=== PATIENT | male | born 1985 | race Caucasian/White ===

== ENCOUNTER 2019-08-10 14:47 | Emergency (ER) | payer OTHER ==
[2019-08-10] MEDS ORDERED: ACETAMINOPHEN 500 MG TAB ONE (15:13)
[2019-08-10] MEDS ORDERED: HYDROCODONE/CHLORPHEN 5 ML/OSYR ONE (15:14)
--- NOTE | 2019-08-10 16:02 | ER ---
Nurse's Notes [facility] Name: Nick Quiroz Age: 34 yrs Sex: Male : 1985 Arrival Date: 08/10/2019 Time: 14:52 Bed 19 Private MD: Diagnosis: Influenza due to identified novel influenza A virus;Streptococcal tonsillitis;Fever, unspecified Presentation: 08/09 14:52 Chief complaint: Patient states: Started with a cough on and a fever of 104 rb1 today. c/o bodyaches x 1 day, chest pressure x 1 day 08/29. Denies SOB, nausea, vomiting, and diarrhea. 14:52 Method Of Arrival: Wheelchair rb1 14:52 Coronavirus screen: Patient reports a subjective fever or greater than 100.4F, or rb1 cough, or shortness of breath, or difficulty breathing. Surgical mask placed on patient. Patient moved to private room, placed in contact and droplet isolation with eye protection until further assessment. Patient denies travel on a cruise ship or to a country the [facility] currently lists as an affected area. Pt. was tested this morning for the virus, will receive results in four days. Ebola Screen: Patient negative for fever greater than or equal to 101.5 degrees Fahrenheit, and additional compatible Ebola Virus Disease symptoms. Initial Sepsis Screen: Does the patient meet any 2 criteria? Yes Does the patient have a suspected source of infection? Yes: Productive cough/pneumonia. Risk Assessment: Do you want to hurt yourself or someone else? Patient reports no desire to harm self or others. 14:52 Acuity: SILVIA 3 rb1 14:52 Onset of symptoms was August 08, 2019. rb1 Triage Assessment: 14:52 General: Appears in no apparent distress. comfortable, Behavior is calm, cooperative, rb1 Reports fever for Bodyaches started yesterday, Fever started this morning. feeling ill for. Pain: Complains of pain in anterior aspect of left upper chest Pain currently is 4 out of 10 on a pain scale. Quality of pain is described as pressure. Neuro: Level of Consciousness is awake, alert, obeys commands, Oriented to person, place, time, situation. Cardiovascular: Capillary refill < 3 seconds is brisk in bilateral fingers. Respiratory: Reports cough that is since Denies shortness of breath. GI: No signs and/or symptoms were reported involving the gastrointestinal system. : No signs and/or symptoms were reported regarding the genitourinary system. Derm: Skin is pink, warm \T\ dry. Historical: - Allergies: 14:52 No Known Allergies; rb1 - Home Meds: 14:52 None [Active]; rb1 - PMHx: 14:52 None; rb1 - PSHx: 14:52 Lasik; rb1 - Immunization history:: Flu vaccine is not up to date. - Social history:: Smoking status: Patient reports the use of cigarette tobacco products, denies chronic smoking, but will smoke occasionally, cigars. Screenin:52 Abuse screen: Denies threats or abuse. Nutritional screening: No deficits noted. rb1 Tuberculosis screening: No symptoms or risk factors identified. Fall Risk None identified. Assessment: 14:52 General: See triage assessment. rb1 15:52 Reassessment: Patient appears in no apparent distress at this time. No changes from rb1 previously documented assessment. 16:17 Reassessment: discharge pending due to shot time. rb1 16:40 Reassessment: No signs and symptoms of adverse reactions. Patient states feeling better.rb1 Vital Signs: 14:52 BP 131 / 83; Pulse 104; Resp 17; Temp 101(TE); Pulse Ox 96% on R/A; Weight 86.18 kg rb1 (R); Height 5 ft. 11 in. (180.34 cm) (R); Pain 4/10; 15:50 BP 125 / 74; Pulse 99; Resp 17; Pulse Ox 99% ; rb1 16:24 BP 118 / 73; Pulse 90; Resp 18; Temp 100.2(TE); rb1 14:52 Body Mass Index 26.50 (86.18 kg, 180.34 cm) [facility] ED Course: 14:52 Patient arrived in ED. rb1 14:52 Arm band placed on right wrist. rb1 14:52 Patient has correct armband on for positive identification. Bed in low position. Call rb1 light in reach. Side rails up X 1. manager neonatal on. Pulse ox on. NIBP on. 14:55 Brittani Schumacher FNP-C is [facility]. snw 14:55 Guillermo Goldberg MD is Attending Physician. snw 15:07 Katja Crouch, GAL is Primary Nurse. rb1 15:27 Triage completed. rb1 15:55 Chest Single View XRAY In Process Unspecified. EDMS 16:45 No provider procedures requiring assistance completed. Patient did not have IV access rb1 during this emergency room visit. Administered Medications: 15:15 Drug: Tussionex Pennkinetic ER 5 ml Route: PO; rb1 16:15 Follow up: Response: No adverse reaction; Marked relief of symptoms rb1 15:15 Drug: Tylenol 1000 mg Route: PO; rb1 16:15 Follow up: Response: No adverse reaction; Temperature is decreased rb1 16:17 Drug: Bicillin L-A 1.2 million units Route: IM; Site: right gluteus; rb1 16:40 Follow up: Response: No adverse reaction rb1 Outcome: 16:00 Discharge ordered by . snw 16:45 Patient left the ED. rb1 16:45 Discharged to home ambulatory. rb1 16:45 Condition: stable 16:45 Discharge instructions given to patient, Instructed on discharge instructions, follow up and referral plans. medication usage, Demonstrated understanding of instructions, follow-up care, medications, Prescriptions given X 1. Signatures: Dispatcher [facility] EDMD Brittani Schumacher, [employer]SMANSHIP INSTRUCTOR-C [employer]SM[employer]SHIP INSTRUCTOR-Csnw Katja Crouch, RN RN rb1 Corrections: (The following items were deleted from the chart) 16:58 16:55 Patient left the ED. rb1 rb1
--- NOTE | 2019-08-10 16:02 | EDPHYS ---
Physician Documentation [facility] Name: Nick Quiroz Age: 34 yrs Sex: Male : 1985 Arrival Date: 08/10/2019 Time: 14:52 Bed 19 Private MD: ED Physician Guillermo Goldberg HPI: 08/09 15:18 This 34 yrs old Male presents to ER via Unassigned with complaints of fever. snw 15:18 The patient or guardian reports cough. Onset: The symptoms/episode began/occurred snw suddenly, 3 day(s) ago, and became worse today. Associated signs and symptoms: Pertinent positives: pressure to chest, higher fever. Severity of symptoms: At their worst the symptoms were moderate. It is unknown whether or not the patient has had similar symptoms in the past. The patient has not recently seen a physician. 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 Historical: - Allergies: 14:52 No Known Allergies; rb1 - Home Meds: 14:52 None [Active]; rb1 - PMHx: 14:52 None; rb1 - PSHx: 14:52 Lasik; rb1 - Immunization history:: Flu vaccine is not up to date. - Social history:: Smoking status: Patient reports the use of cigarette tobacco products, denies chronic smoking, but will smoke occasionally, cigars. ROS: 15:18 Eyes: Negative for injury, pain, redness, and discharge, ENT: Negative for injury, snw pain, and discharge, Neck: Negative for injury, pain, and swelling, Cardiovascular: Negative for chest pain, palpitations, and edema. 15:18 Abdomen/GI: Negative for abdominal pain, nausea, vomiting, diarrhea, and constipation, Back: Negative for injury and pain, : Negative for injury, bleeding, discharge, and swelling, MS/Extremity: Negative for injury and deformity, Skin: Negative for injury, rash, and discoloration, Neuro: Negative for headache, weakness, numbness, tingling, and seizure, Psych: Negative for depression, anxiety, suicide ideation, homicidal ideation, and hallucinations. 15:18 Constitutional: Positive for body aches, chills, fatigue, fever, malaise. 15:18 Respiratory: Positive for cough. Exam: 15:17 Head/Face: Normocephalic, atraumatic. Eyes: Pupils equal round and reactive to light, snw extra-ocular motions intact. Lids and lashes normal. Conjunctiva and sclera are non-icteric and not injected. Cornea within normal limits. Periorbital areas with no swelling, redness, or edema. ENT: Nares patent. No nasal discharge, no septal abnormalities noted. Tympanic membranes are normal and external auditory canals are clear. Oropharynx with no redness, swelling, or masses, exudates, or evidence of obstruction, uvula midline. Mucous membranes moist. Neck: Trachea midline, no thyromegaly or masses palpated, and no cervical lymphadenopathy. Supple, full range of motion without nuchal rigidity, or vertebral point tenderness. No Meningismus. Chest/axilla: Normal chest wall appearance and motion. Nontender with no deformity. No lesions are appreciated. 15:17 Abdomen/GI: Soft, non-tender, with normal bowel sounds. No distension or tympany. No guarding or rebound. No evidence of tenderness throughout. Back: No spinal tenderness. No costovertebral tenderness. Full range of motion. Skin: Warm, dry with normal turgor. Normal color with no rashes, no lesions, and no evidence of cellulitis. MS/ Extremity: Pulses equal, no cyanosis. Neurovascular intact. Full, normal range of motion. Neuro: Awake and alert, GCS 15, oriented to person, place, time, and situation. Cranial nerves II-XII grossly intact. Motor strength 5/5 in all extremities. Sensory grossly intact. Cerebellar exam normal. Normal gait. Psych: Awake, alert, with orientation to person, place and time. Behavior, mood, and affect are within normal limits. 15:17 Constitutional: The patient appears alert, febrile, listless, uncomfortable. 15:17 Cardiovascular: Rate: tachycardic, Rhythm: regular, Pulses: no pulse deficits are appreciated, Heart sounds: normal. 15:17 Respiratory: the patient does not display signs of respiratory distress, Respirations: normal, Breath sounds: are clear throughout. Vital Signs: 14:52 BP 131 / 83; Pulse 104; Resp 17; Temp 101(TE); Pulse Ox 96% on R/A; Weight 86.18 kg rb1 (R); Height 5 ft. 11 in. (180.34 cm) (R); Pain 4/10; 15:50 BP 125 / 74; Pulse 99; Resp 17; Pulse Ox 99% ; rb1 16:24 BP 118 / 73; Pulse 90; Resp 18; Temp 100.2(TE); rb1 14:52 Body Mass Index 26.50 (86.18 kg, 180.34 cm) rb1 MDM: 14:55 Patient medically screened. snw 16:02 Data reviewed: vital signs, nurses notes. Data interpreted: Pulse oximetry: on room air snw is 96 %. Interpretation: acceptable. Counseling: I had a detailed discussion with the patient and/or guardian regarding: the historical points, exam findings, and any diagnostic results supporting the discharge/admit diagnosis, lab results, the need for outpatient follow up, to return to the emergency department if symptoms worsen or persist or if there are any questions or concerns that arise at home. Special discussion: Based on the history and exam findings, there is no indication for further emergent testing or inpatient evaluation. I discussed with the patient/guardian the need to see the primary care provider for further evaluation of the symptoms. 08/09 15:06 Order name: Flu; Complete Time: 15:51 snw 08/09 15:06 Order name: Strep; Complete Time: 15:51 snw 08/09 15:06 Order name: Chest Single View XRAY; Complete Time: 16:40 snw Administered Medications: 15:15 Drug: Tussionex Pennkinetic ER 5 ml Route: PO; rb1 16:15 Follow up: Response: No adverse reaction; Marked relief of symptoms rb1 15:15 Drug: Tylenol 1000 mg Route: PO; rb1 16:15 Follow up: Response: No adverse reaction; Temperature is decreased rb1 16:17 Drug: Bicillin L-A 1.2 million units Route: IM; Site: right gluteus; rb1 16:40 Follow up: Response: No adverse reaction rb1 Disposition: 17:04 Co-signature as Attending Physician, Guillermo Goldberg MD I agree with the assessment and kdr plan of care. Disposition: 08/10/19 16:00 Discharged to Home. Impression: Influenza due to identified novel influenza A virus, Streptococcal tonsillitis, Fever, unspecified. - Condition is Stable. - Discharge Instructions: Fever, Adult, Influenza, Adult, Strep Throat, Cough, Adult, Rehydration, Adult. - Prescriptions for promethazine 25 mg Oral Tablet - take 1 tablet by ORAL route every 6 hours As needed; 20 tablet. - Work release form, Medication Reconciliation Form, Thank You Letter, Antibiotic Education, Prescription Opioid Use form. - Follow up: Emergency Department; When: As needed; Reason: Worsening of condition. Follow up: Private Physician; When: 10 - 14 days; Reason: Recheck today's complaints, Continuance of care, Re-evaluation by your physician. - Notes: Please await results from health department. Remain self-quarantined. Avoid Motrin until Covid19 test results. Be safe. Signatures: Dispatcher [employer] EDGuillermo King MD MD kdr Therrien, Shelly, GRAVEL WEIGHER-C GRA[employer] WEIGHER-Csnw Katja Crouch RN RN rb1 Corrections: (The following items were deleted from the chart) 16:55 16:00 08/10/2019 16:00 Discharged to Home. Impression: Influenza due to identified rb1 novel influenza A virus; Streptococcal tonsillitis; Fever, unspecified. Condition is Stable. Forms are Medication Reconciliation Form, Thank You Letter, Antibiotic Education, Prescription Opioid Use. Follow up: Emergency Department; When: As needed; Reason: Worsening of condition. Follow up: Private Physician; When: 10 - 14 days; Reason: Recheck today's complaints, Continuance of care, Re-evaluation by your physician. snw
[2019-08-10] MEDS ORDERED: PEN G BENZ LA 1.2MU/2ML SYRINGE IM ONE (16:06)
--- NOTE | 2019-08-10 16:12 | RAD REPORT ---
EXAM DESCRIPTION: José Luis Single View08/10/2019 3:55 pm CLINICAL HISTORY: cough COMPARISON: none FINDINGS: The lungs appear clear of acute infiltrate. The heart is normal size IMPRESSION: No acute abnormalities displayed
[2019-08-10 17:06] VITALS: O2SAT 99
[2019-08-10 17:07] VITALS: BP 118/73; TEMP 100.2
== END 2019-08-10 16:55 | disposition home or self-care (01) ==
LOC: ER 14:47
DX: J09.X9 Influenza due to identified novel influenza A virus with other manifestations (principal); J03.00 Acute streptococcal tonsillitis, unspecified; F17.210 Nicotine dependence, cigarettes, uncomplicated
CPT/HCPCS: 87081; 87804 ×2; 71045; 96372; 99284; J0561